=== PATIENT | female | born 1955 | race Caucasian/White ===

== ENCOUNTER → 2019-02-05 | Outpatient (REF) | payer BC ==
[~2019-02-05] MED LIST: AMLO5TAB6 PO; COMBAER6 INH; LEVA750T7 PO; METH2.5T48 PO; PRED10TA2 PO
[2019-02-05 19:18] LABS: C REACTIVE PROTEIN QUANTITATIV < 0.30 MG/DL (0.00-0.30); URIC ACID 5.8 MG/DL (2.6-6.0)
== END ==
LOC: M LAB REF 18:29
PROVIDERS: ATTEND Internal Medicine
DX: M25.571 Pain in right ankle and joints of right foot (principal)

== ENCOUNTER → 2019-09-16 | Outpatient (CLI) | payer BC ==
[~2019-09-16] MED LIST changes: +PROHANCE 279.3MG/ML 15ML VIAL (A9576) As Ordered ONE
--- NOTE | 2019-09-16 10:25 | REP ---
MRI RIGHT FOOT WITH AND WITHOUT CONTRAST: Multiple sequences obtained in the axial, coronal and sagittal plans prior to and following the intravenous administration of 12 mL ProHance. There is a nondisplaced fracture of the navicular bone with diffuse marrow edema throughout the navicula. Curvilinear transverse fracture is noted through the navicular bone. Nondisplaced fracture is seen at the base of the 1st metatarsal with diffuse marrow edema involving the metatarsal. There is focal marrow edema and suspected occult fractures also of the distal 2nd through 5th metatarsals. I also suspect an occult fracture of the 4th proximal phalanx with diffuse marrow edema noted. Mild subcortical bone marrow edema is seen in the cuboid distally which may represent mild stress related change and bone bruising. There is diffuse soft tissue edema predominately in the forefoot and also in the hind foot superficial to the plantar tendon. Plantar tendon is intact. The flexor and extensor tendons are intact with no tenosynovitis. Tendons and ligaments at the ankle appear intact. There is a lobulated and loculated ganglion cyst along the lateral aspect of the talocalcaneal joint approximately 1.8 cm in width and less than 1 cm in thickness. Another is seen at the anterolateral margin of the talus measuring about 7 x 11 x 5 mm. No enhancing soft tissue mass is seen. IMPRESSION: Nondisplaced fracture of the navicular bone. Nondisplaced fracture at the base of the 1st metatarsal. Occult fractures of the heads of the 2nd through 5th metatarsals as well as the 4th proximal phalanx. Two relatively small lobulated loculated ganglion cysts are seen in the lateral hind foot as discussed in detail above. Diffuse soft tissue edema. No enhancing soft tissue mass. Electronically Signed by Dylan Solis MD 09/16/2019 10:57 A
== END ==
LOC: M RAD 07:02
PROVIDERS: ATTEND Physician Assistant
DX: S92.254A Nondisplaced fracture of navicular [scaphoid] of right foot, initial encounter for closed fracture (principal); S92.314A Nondisplaced fracture of first metatarsal bone, right foot, initial encounter for closed fracture; S92.321A Displaced fracture of second metatarsal bone, right foot, initial encounter for closed fracture; S92.331A Displaced fracture of third metatarsal bone, right foot, initial encounter for closed fracture; S92.341A Displaced fracture of fourth metatarsal bone, right foot, initial encounter for closed fracture; S92.351A Displaced fracture of fifth metatarsal bone, right foot, initial encounter for closed fracture; S92.511A Displaced fracture of proximal phalanx of right lesser toe(s), initial encounter for closed fracture; M67.471 Ganglion, right ankle and foot; X58.XXXA Exposure to other specified factors, initial encounter; Y92.9 Unspecified place or not applicable; Y93.9 Activity, unspecified; Y99.9 Unspecified external cause status
CPT/HCPCS: 73720; A9576

== ENCOUNTER → 2019-11-14 | Outpatient (REF) | payer BC ==
[~2019-11-14] MED LIST changes: -PROHANCE 279.3MG/ML 15ML VIAL (A9576) As Ordered ONE
== END ==
LOC: M LAB REF 16:31
PROVIDERS: ATTEND Nurse Practitioner Adult Health
DX: M85.80 Other specified disorders of bone density and structure, unspecified site (principal)

== ENCOUNTER → 2020-11-17 | Outpatient (REF) | payer BC ==
[~2020-11-17] MED LIST changes: +AMLO1TAB24 PO; -AMLO5TAB6 PO
== END ==
LOC: M LAB REF 16:25
PROVIDERS: ATTEND Nurse Practitioner Adult Health
DX: D64.9 Anemia, unspecified (principal)

== ENCOUNTER → 2021-06-04 | Outpatient (CLI) | payer BC ==
--- NOTE | 2021-06-04 16:10 | REPMRS ---
Patient History The patient states she has not had a clinical breast exam in over a year. Family history of unknown cancer at age 58 in father. Benign radio exam breast specimen of the right breast, July 13, 2016. Benign stereotatic loc for ea lesion of the right breast, July 13, 2016. Took hormonal contraceptives for 10 years. Patient states no breast complaints today. Patient has signed MRS History Sheet. Digital Woman Screen Mammo: June 04, 2021 - Exam #: [id number] Bilateral CC and MLO view(s) were taken. Technologist: Mago Mcfarland, Technologist Prior study comparison: May 25, 2020, bilateral digital mammo screening bilat, performed at [facility]. May 23, 2019, bilateral digital mammo screening bilat, performed at [facility]. May 03, 2018, bilateral digital mammo screening bilat, performed at [facility]. April 29, 2014, bilateral bilat screen digital mammo, performed at [facility] ([facility]). April 17, 2013, bilateral bilat screen digital mammo, performed at [facility] ([facility]). FINDINGS: There are scattered fibroglandular densities. Screening. Digital screening (2D) mammography was performed bilaterally in the CC and MLO projections. Additionally, breast tomosynthesis (3D mammography) was performed bilaterally in the CC and MLO projections. Todays exam was compared to the prior exam/exams. By history, the patient has no complaints of a palpable breast abnormality or other significant breast complaints. The breasts are unchanged in size and shape. There are no hui-soft tissue densities or spiculated masses. There is no internal architectural distortion. Once again, stable benign appearing calcifications are seen.There are no suspicious hui-calcific clusters. Skin thickening or nipple retraction is not present. IMPRESSION: BI-RADS Category 2- Benign Findings. There is no evidence of malignant alteration of the breasts. Followup examination recommended in one year. The Volpara volumetric breast density category is B, there are scattered areas of fibroglandular densities. This mammogram was read with the assistance of [employer],an FDA approved computer aided detection system for mammography. The lifetime Tyrer-Cuzick score is 8 % Negative x-ray reports should not delay surgical consultation if a dominant or clinically suspicious mass is present. Not all breast cancers can be identified by mammography. Therefore, we recommend that you continue to perform regular breast self-examination and physical examination and then promptly contact your physician of any concerns or changes. Adenosis and dense breasts may obscure an underlying neoplasm. Assessment: BI-RADS/ACR category 2 mammogram. Benign Findings. Recommendation Routine screening mammogram of both breasts in 1 year. Electronically Signed By: Abdifatah Gu DO 06/04/21 [id number]
== END ==
LOC: M WHC 15:32
PROVIDERS: ATTEND Nurse Practitioner Adult Health
DX: Z12.31 Encounter for screening mammogram for malignant neoplasm of breast (principal); Z80.9 Family history of malignant neoplasm, unspecified; R92.1 Mammographic calcification found on diagnostic imaging of breast

== ENCOUNTER → 2021-06-29 | Outpatient (REF) | payer BC | LOC: M LAB REF 12:20 | PROVIDERS: ATTEND Nurse Practitioner Adult Health | DX: D75.89 Other specified diseases of blood and blood-forming organs (principal) ==

== ENCOUNTER → 2021-07-23 | Outpatient (CLI) | payer BC ==
--- NOTE | 2021-07-23 11:27 | REP ---
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 COMPARISON: No prior CTs for comparison. Prior ankle MRI 09/16/2019 and plain film examination 08/30/2019 reviewed. TECHNIQUE: 2 x 2 mm increments using helical technique and reconstructed in both sagittal and coronal planes FINDINGS: There is a comminuted talar fracture with both talar dome and posterior subtalar joint intra-articular components. The bones are demineralized. No additional fractures are identified. IMPRESSION: Age undetermined fracture of the talus as described above. The finding represents a change from the prior aforementioned exams. MRI is recommended to assess for marrow edema which may be helpful in determining the acuteness chronicity of the finding. <Electronically signed by Abdifatah Gu > 07/23/21 [id number]
--- NOTE | 2021-07-23 11:32 | REP ---
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 COMPARISON: None. TECHNIQUE: 1 x 2 mm increments using helical technique and reconstructed in both sagittal and coronal planes. FINDINGS: The bases of the 1st and 2nd metatarsals are fractured. The distal diaphyses of the 2nd through 4th metatarsals are fractured. A subtle nondisplaced fracture of the 5th metatarsal head cannot be ruled out. The bones are demineralized. There is a plantar calcaneal heel spur. IMPRESSION: Multiple fractures as described above. Consider follow-up with MRI. <Electronically signed by Abdifatah Gu > 07/23/21 1126
== END ==
LOC: M PLAIMG 10:25
PROVIDERS: ATTEND Physician Assistant
DX: M19.171 Post-traumatic osteoarthritis, right ankle and foot (principal); S92.335A Nondisplaced fracture of third metatarsal bone, left foot, initial encounter for closed fracture; X58.XXXA Exposure to other specified factors, initial encounter; Y92.9 Unspecified place or not applicable; Y93.9 Activity, unspecified; Y99.9 Unspecified external cause status; M77.32 Calcaneal spur, left foot

== ENCOUNTER → 2022-04-18 | Outpatient (CLI) | payer OTHER, MEDICAID ==
[2022-04-18 19:43] LABS: CALCIUM LEVEL 9.9 MG/DL (8.8-10.2)
[2022-04-19 10:25] LABS: TOTAL 25(OH) VITAMIN D 39.5 NG/ML (30.0-100.0)
== END ==
LOC: M WUC 12:00
PROVIDERS: ATTEND Internal Medicine Endocrinology, Diabetes & Metabolism
DX: M81.0 Age-related osteoporosis without current pathological fracture (principal); E55.9 Vitamin D deficiency, unspecified

== ENCOUNTER → 2022-06-17 | Outpatient (CLI) | payer OTHER | LOC: M WHC 09:53 | PROVIDERS: ATTEND Nurse Practitioner Adult Health | DX: Z12.31 Encounter for screening mammogram for malignant neoplasm of breast (principal); R92.8 Other abnormal and inconclusive findings on diagnostic imaging of breast ==

== ENCOUNTER → 2022-06-23 | Outpatient (CLI) | payer OTHER | LOC: M WHC 09:14 | PROVIDERS: ATTEND Nurse Practitioner Adult Health | DX: R92.2 Inconclusive mammogram (principal); R92.8 Other abnormal and inconclusive findings on diagnostic imaging of breast ==

== ENCOUNTER → 2022-06-30 | Outpatient (CLI) | payer OTHER ==
[2022-06-30 17:37] LABS: CALCIUM LEVEL 9.1 MG/DL (8.8-10.2); CREATININE FOR GFR 1.05 MG/DL (0.55-1.30); GLOMERULAR FILTRATION RATE 56.2 (>45); POTASSIUM SERUM 4.4 MEQ/L (3.5-5.1)
== END ==
LOC: M WUC 10:53
PROVIDERS: ATTEND Internal Medicine Endocrinology, Diabetes & Metabolism
DX: M81.0 Age-related osteoporosis without current pathological fracture (principal)

== ENCOUNTER → 2022-08-03 | Outpatient (CLI) | payer OTHER | LOC: M LABSMTC 09:54 | PROVIDERS: ATTEND Ophthalmology | DX: Z91.012 Allergy to eggs (principal); Z20.822 Contact with and (suspected) exposure to COVID-19 ==

== ENCOUNTER → 2022-09-29 | Outpatient (CLI) | payer OTHER ==
[2022-09-29 17:05] LABS: BLOOD UREA NITROGEN 23 MG/DL (9-23); CALCIUM LEVEL 9.7 MG/DL (8.3-10.6); CARBON DIOXIDE LEVEL 25 MMOL/L (20-31); CHLORIDE LEVEL 103 MMOL/L (98-107); CREATININE FOR GFR 0.85 MG/DL (0.55-1.30); GLOMERULAR FILTRATION RATE > 60.0 (>45); GLUCOSE, FASTING 95 MG/DL (74-106); POTASSIUM SERUM 4.5 MMOL/L (3.5-5.1); SODIUM LEVEL 138 MMOL/L (136-145)
== END ==
LOC: M WUC 11:55
PROVIDERS: ATTEND Internal Medicine Endocrinology, Diabetes & Metabolism
DX: M81.0 Age-related osteoporosis without current pathological fracture (principal)

== ENCOUNTER → 2022-12-22 | Outpatient (CLI) | payer MEDICARE, OTHER | LOC: M WHC 09:31 | PROVIDERS: ATTEND Nurse Practitioner Adult Health | DX: Z12.31 Encounter for screening mammogram for malignant neoplasm of breast (principal) | CPT/HCPCS: 77065; G0279 ==

== ENCOUNTER → 2023-06-05 | Outpatient (REF) | payer MEDICARE | LOC: M LAB REF 18:14 | PROVIDERS: ATTEND Surgery | DX: L72.3 Sebaceous cyst (principal) ==

== ENCOUNTER → 2023-08-01 | Outpatient (REF) | payer MEDICARE, OTHER ==
[2023-08-01 18:06] LABS: BLOOD UREA NITROGEN 15 MG/DL (9-23); CALCIUM LEVEL 9.5 MG/DL (8.3-10.6); CARBON DIOXIDE LEVEL 27 MMOL/L (20-31); CHLORIDE LEVEL 103 MMOL/L (98-107); CREATININE FOR GFR 0.91 MG/DL (0.55-1.30); GLOMERULAR FILTRATION RATE > 60.0 (>45); GLUCOSE, FASTING 97 MG/DL (74-106); SODIUM LEVEL 137 MMOL/L (136-145)
== END ==
LOC: M LABWUC 16:08
PROVIDERS: ATTEND Nurse Practitioner Family
DX: M81.0 Age-related osteoporosis without current pathological fracture (principal)

== ENCOUNTER → 2024-03-04 | Outpatient (CLI) | payer MEDICARE, OTHER | LOC: M WUC 14:33 | PROVIDERS: ATTEND Nurse Practitioner Adult Health | DX: J44.1 Chronic obstructive pulmonary disease with (acute) exacerbation (principal); I70.0 Atherosclerosis of aorta ==

== ENCOUNTER → 2024-05-02 | Outpatient (CLI) | payer MEDICARE, OTHER | LOC: M WHC 09:38 | PROVIDERS: ATTEND Internal Medicine Endocrinology, Diabetes & Metabolism | DX: M81.0 Age-related osteoporosis without current pathological fracture (principal); M85.89 Other specified disorders of bone density and structure, multiple sites ==

== ENCOUNTER → 2024-05-08 | Outpatient (CLI) | payer MEDICARE, OTHER | LOC: M PLAIMG 12:27 | PROVIDERS: ATTEND Internal Medicine Pulmonary Disease | DX: R91.8 Other nonspecific abnormal finding of lung field (principal) ==

== ENCOUNTER → 2024-06-21 | Outpatient (CLI) | payer MEDICARE ==
[2024-06-21 18:26] LABS: BLOOD UREA NITROGEN 20 MG/DL (9-23); CALCIUM LEVEL 9.5 MG/DL (8.3-10.6); CARBON DIOXIDE LEVEL 25 MMOL/L (20-31); CHLORIDE LEVEL 104 MMOL/L (98-107); CREATININE FOR GFR 0.89 MG/DL (0.55-1.30); GLOMERULAR FILTRATION RATE > 60.0 (>45); GLUCOSE, FASTING 87 MG/DL (74-106); POTASSIUM SERUM 4.4 MMOL/L (3.5-5.1); SODIUM LEVEL 135 MMOL/L (136-145)
[2024-06-21 18:28] LABS: TOTAL 25(OH) VITAMIN D 59.9 NG/ML (20.0-100.0)
== END ==
LOC: M WUC 10:53
PROVIDERS: ATTEND Internal Medicine Endocrinology, Diabetes & Metabolism
DX: E55.9 Vitamin D deficiency, unspecified (principal)

== ENCOUNTER → 2024-06-21 | Outpatient (CLI) | payer MEDICARE, OTHER | LOC: M WHC 09:48 | PROVIDERS: ATTEND Nurse Practitioner Adult Health | DX: Z12.31 Encounter for screening mammogram for malignant neoplasm of breast (principal); E55.9 Vitamin D deficiency, unspecified ==

== ENCOUNTER 2024-09-19 12:26 | Observation (INO) | payer MEDICARE ==
[~2024-09-19] VITALS: Ht 172.7 cm; Wt 67.0 kg
[2024-09-19 13:27] LABS: BASO % 0.1 % (0.0-1.0); HEMATOCRIT 39.8 % (36.0-47.0); HEMOGLOBIN 13.6 g/dl (12.0-15.5); LYMPH # 0.2 10^3/uL (1.5-5.0); LYMPH % 1.8 % (24.0-44.0); MEAN CORPUSCULAR HEMOGLOBIN 34.9 pg (27.0-33.0); MEAN CORPUSCULAR HGB CONC 34.2 g/dl (32.0-36.5); MEAN CORPUSCULAR VOLUME 102.1 fl (80.0-96.0); MONO # 0.1 10^3/uL (0.0-0.8); MONO % 1.6 % (2.0-8.0); NEUTROPHILS # 7.9 10^3/uL (1.5-8.5); PLATELET COUNT, AUTOMATED 230 10^3/uL (150-450); WHITE BLOOD COUNT 8.2 10^3/uL (4.0-10.0)
[2024-09-19] MEDS: ACETAMINOPHEN 325 MG TAB PO ONE (13:51)
[2024-09-19 13:55] LABS: ALBUMIN 4.3 G/DL (3.2-5.2); ALKALINE PHOSPHATASE 96 U/L (35-104); ALT/SGPT 84 U/L (7.0-40); AST/SGOT 88 U/L (<34); BILIRUBIN,DIRECT 0.1 MG/DL (<0.4); BILIRUBIN,TOTAL 0.4 MG/DL (0.3-1.2); BLOOD UREA NITROGEN 14 MG/DL (9-23); CALCIUM LEVEL 9.3 MG/DL (8.3-10.6); CARBON DIOXIDE LEVEL 24 MMOL/L (20-31); CHLORIDE LEVEL 98 MMOL/L (98-107); CREATININE FOR GFR 0.74 MG/DL (0.55-1.30); GLOMERULAR FILTRATION RATE > 60.0 (>45); GLUCOSE, FASTING 156 MG/DL (74-106); POTASSIUM SERUM 4.3 MMOL/L (3.5-5.1); SODIUM LEVEL 131 MMOL/L (136-145)
[2024-09-19 14:15] LABS: PROCALCITONIN 0.12 ng/ml
[2024-09-19 14:39] LABS: ABG BASE EXCESS -2.9 (-2.0-2.0); ABG HCO3 20.9 MMOL/L (22.0-26.0); ABG O2 SATURATION 95.1 % (95.0-99.0); ABG PARTIAL PRESSURE CO2 33.5 mmHg (35.0-45.0); ABG PARTIAL PRESSURE O2 69.7 mmHg (75.0-100.0); ABG TOTAL CO2 21.9 MMOL/L (23.0-31.0); ABG pH (ARTERIAL) 7.412 UNITS (7.350-7.450)
[2024-09-19 15:23] LABS: KETONE, URINE AUTO RFX 1+ mg/dL (NEGATIVE); LEUKOCYTE ESTERASE UR AUTO RFX NEGATIVE (NEGATIVE)
[2024-09-19] MEDS: methylPREDNISolone 125MG 2ML VIAL IV ONE (17:18)
[2024-09-19] MEDS: OSELTAMIVIR PHOSPHATE 75 MG CAP (TAMIFLU) PO ONE (17:18)
[2024-09-19] MEDS: ALBUTEROL 90 MCG/ACT 8GM HFA INHALER INH ONE (17:57)
[2024-09-19] MEDS: ONDANSETRON 4MG 2ML VIAL IV ONE (18:31)
[2024-09-19] MEDS ORDERED: BUDE10.7 INH (19:38)
[2024-09-19] MEDS ORDERED: IBUP80TA PO (19:38)
[2024-09-19] MEDS ORDERED: FOLI1TAB11 PO (19:38)
[2024-09-19] MEDS ORDERED: ALBU8.5H INH (19:38)
[2024-09-19] MEDS ORDERED: HOME MED LIST COMPLETE! XX SCH (19:40)
[2024-09-19] MEDS: SYMBICORT 160/4.5MCG INHALER 6GM INH SCH (20:00)
[2024-09-19] MEDS: IBUPROFEN 600MG TAB PO ONE (20:22)
[2024-09-19 23:22] VITALS: BP 151/85; TEMP 97.2; O2SAT 97
[2024-09-20] MEDS: ACETAMINOPHEN 325 MG TAB PO PRN (00:08)
[2024-09-20] MEDS ORDERED: NICOTINE 14 MG/24 HR TRANSDERMAL TD PRN (00:30)
[2024-09-20] MEDS ORDERED: NICOTINE POLACRILEX 2 MG GUM PO PRN (00:30)
[2024-09-20] MEDS ORDERED: LIDOCAINE 5% (LIDODERM) PATCH TD PRN (00:35)
[2024-09-20] MEDS: UNRESOLVED CLARIFICATION ENTRY XX STA (01:09)
[2024-09-20] MEDS: AZITHROMYCIN 250MG TABLET PO SCH (01:19)
[2024-09-20] MEDS: methylPREDNISolone 40MG 1ML VIAL IV SCH (01:19)
[2024-09-20] MEDS: IPRATROPIUM 0.5MG/ALBUTEROL 2.5MG INH SOL UD 3ML (DUONEB) NEB SCH (02:00)
[2024-09-20 02:05] VITALS: O2SAT 86
[2024-09-20 02:08] VITALS: O2SAT 94
[2024-09-20 04:00] VITALS: BP 104/70; TEMP 97.5; O2SAT 89
[2024-09-20 06:26] LABS: HEMATOCRIT 37.3 % (36.0-47.0); HEMOGLOBIN 12.5 g/dl (12.0-15.5); MEAN CORPUSCULAR HEMOGLOBIN 34.2 pg (27.0-33.0); MEAN CORPUSCULAR HGB CONC 33.5 g/dl (32.0-36.5); MEAN CORPUSCULAR VOLUME 101.9 fl (80.0-96.0); PLATELET COUNT, AUTOMATED 208 10^3/uL (150-450); RED BLOOD COUNT 3.66 10^6/uL (4.00-5.40); WHITE BLOOD COUNT 8.3 10^3/uL (4.0-10.0)
[2024-09-20 06:51] LABS: BLOOD UREA NITROGEN 23 MG/DL (9-23); CALCIUM LEVEL 8.5 MG/DL (8.3-10.6); CARBON DIOXIDE LEVEL 23 MMOL/L (20-31); CHLORIDE LEVEL 98 MMOL/L (98-107); CREATININE FOR GFR 0.74 MG/DL (0.55-1.30); GLOMERULAR FILTRATION RATE > 60.0 (>45); GLUCOSE, FASTING 129 MG/DL (74-106); POTASSIUM SERUM 4.3 MMOL/L (3.5-5.1); SODIUM LEVEL 130 MMOL/L (136-145)
[2024-09-20] MEDS: OSELTAMIVIR PHOSPHATE 75 MG CAP (TAMIFLU) PO SCH (08:34)
[2024-09-20] MEDS: HEPARIN SOD (PORCINE) 5000UNITS/ML 1ML VIAL/SYRINGE SC SCH (08:40)
[2024-09-20] MEDS ORDERED: ISOVUE-370 76% 100ML VIAL As Ordered ONE (11:42)
[2024-09-20 12:45] VITALS: BP 110/94; TEMP 97.7; O2SAT 96
[2024-09-20 20:09] VITALS: BP 135/76; TEMP 98.1; O2SAT 94
[2024-09-21] VITALS: BP 123/74; TEMP 97.3; O2SAT 95
[2024-09-21 06:40] LABS: HEMATOCRIT 35.7 % (36.0-47.0); HEMOGLOBIN 12.2 g/dl (12.0-15.5); MEAN CORPUSCULAR HEMOGLOBIN 34.4 pg (27.0-33.0); MEAN CORPUSCULAR HGB CONC 34.2 g/dl (32.0-36.5); MEAN CORPUSCULAR VOLUME 100.6 fl (80.0-96.0); PLATELET COUNT, AUTOMATED 205 10^3/uL (150-450); RED BLOOD COUNT 3.55 10^6/uL (4.00-5.40)
[2024-09-21 07:14] LABS: BLOOD UREA NITROGEN 35 MG/DL (9-23); CALCIUM LEVEL 8.2 MG/DL (8.3-10.6); CARBON DIOXIDE LEVEL 24 MMOL/L (20-31); CHLORIDE LEVEL 99 MMOL/L (98-107); CREATININE FOR GFR 0.94 MG/DL (0.55-1.30); GLOMERULAR FILTRATION RATE > 60.0 (>45); GLUCOSE, FASTING 134 MG/DL (74-106); POTASSIUM SERUM 4.5 MMOL/L (3.5-5.1); SODIUM LEVEL 132 MMOL/L (136-145)
[2024-09-21 11:03] LABS: PROCALCITONIN 0.17 ng/ml
[2024-09-21] MEDS: IPRATROPIUM 0.5MG/ALBUTEROL 2.5MG INH SOL UD 3ML (DUONEB) NEB SCH (12:00)
[2024-09-21 12:33] VITALS: BP 122/79; TEMP 97.5; O2SAT 94
[2024-09-21] MEDS: guaiFENesin ER TABLET 600 MG TAB PO SCH (12:37)
[2024-09-21 20:00] VITALS: BP 144/86; TEMP 98.1; O2SAT 93
[2024-09-22] VITALS: BP 111/63; TEMP 97.3; O2SAT 91
[2024-09-22 04:00] VITALS: BP 119/73; TEMP 97.5; O2SAT 92
[2024-09-22 06:53] LABS: HEMATOCRIT 37.1 % (36.0-47.0); HEMOGLOBIN 12.5 g/dl (12.0-15.5); MEAN CORPUSCULAR HEMOGLOBIN 33.9 pg (27.0-33.0); MEAN CORPUSCULAR HGB CONC 33.7 g/dl (32.0-36.5); MEAN CORPUSCULAR VOLUME 100.5 fl (80.0-96.0); PLATELET COUNT, AUTOMATED 209 10^3/uL (150-450); RED BLOOD COUNT 3.69 10^6/uL (4.00-5.40)
[2024-09-22 07:22] LABS: BLOOD UREA NITROGEN 42 MG/DL (9-23); CALCIUM LEVEL 8.6 MG/DL (8.3-10.6); CARBON DIOXIDE LEVEL 24 MMOL/L (20-31); CHLORIDE LEVEL 98 MMOL/L (98-107); CREATININE FOR GFR 0.85 MG/DL (0.55-1.30); GLOMERULAR FILTRATION RATE > 60.0 (>45); GLUCOSE, FASTING 156 MG/DL (74-106); SODIUM LEVEL 133 MMOL/L (136-145)
[2024-09-22 08:28] VITALS: BP 123/66; TEMP 97.7; O2SAT 91
[2024-09-22 12:57] VITALS: BP 135/75; TEMP 97.9; O2SAT 92
[2024-09-22] MEDS: ONDANSETRON 4MG 2ML VIAL IV PRN (14:54)
[2024-09-22 16:45] VITALS: BP 135/85; TEMP 97.9; O2SAT 93
[2024-09-22] MEDS: PANTOPRAZOLE 40MG TAB (PROTONIX) PO PRN (17:06)
[2024-09-22 20:00] VITALS: BP 147/92; TEMP 97.5; O2SAT 92
[2024-09-23] VITALS (8 sets, daily range): BP systolic 124–145; BP diastolic 72–96; TEMP 96.4–97.8; O2SAT 86–100
[2024-09-23 06:21] LABS: HEMOGLOBIN 12.1 g/dl (12.0-15.5); MEAN CORPUSCULAR HEMOGLOBIN 35.3 pg (27.0-33.0); MEAN CORPUSCULAR HGB CONC 34.6 g/dl (32.0-36.5); PLATELET COUNT, AUTOMATED 209 10^3/uL (150-450); RED BLOOD COUNT 3.43 10^6/uL (4.00-5.40); WHITE BLOOD COUNT 11.1 10^3/uL (4.0-10.0)
[2024-09-23 07:00] LABS: BLOOD UREA NITROGEN 38 MG/DL (9-23); CALCIUM LEVEL 8.6 MG/DL (8.3-10.6); CARBON DIOXIDE LEVEL 22 MMOL/L (20-31); CHLORIDE LEVEL 102 MMOL/L (98-107); CREATININE FOR GFR 0.84 MG/DL (0.55-1.30); GLOMERULAR FILTRATION RATE > 60.0 (>45); GLUCOSE, FASTING 137 MG/DL (74-106); POTASSIUM SERUM 4.4 MMOL/L (3.5-5.1); SODIUM LEVEL 135 MMOL/L (136-145)
[2024-09-23 09:11] LABS: LIPASE 66 U/L (12-53)
[2024-09-24 00:10] VITALS: O2SAT 92
[2024-09-24 01:00] VITALS: O2SAT 90
[2024-09-24 03:03] VITALS: O2SAT 85; O2SAT 90
[2024-09-24 04:33] VITALS: O2SAT 91
[2024-09-24 05:26] VITALS: BP 139/80; TEMP 97.2; O2SAT 92
[2024-09-24 06:40] LABS: HEMATOCRIT 35.8 % (36.0-47.0); HEMOGLOBIN 11.9 g/dl (12.0-15.5); MEAN CORPUSCULAR HGB CONC 33.2 g/dl (32.0-36.5); MEAN CORPUSCULAR VOLUME 102.3 fl (80.0-96.0); PLATELET COUNT, AUTOMATED 228 10^3/uL (150-450); WHITE BLOOD COUNT 12.9 10^3/uL (4.0-10.0)
[2024-09-24 07:11] LABS: BLOOD UREA NITROGEN 37 MG/DL (9-23); CALCIUM LEVEL 8.8 MG/DL (8.3-10.6); CARBON DIOXIDE LEVEL 25 MMOL/L (20-31); CHLORIDE LEVEL 104 MMOL/L (98-107); CREATININE FOR GFR 0.93 MG/DL (0.55-1.30); GLOMERULAR FILTRATION RATE > 60.0 (>45); GLUCOSE, FASTING 137 MG/DL (74-106); SODIUM LEVEL 136 MMOL/L (136-145)
[2024-09-24] MEDS ORDERED: TIOTROPIUM INHALER/CAPSULE (SPIRIVA) INH SCH (08:00)
[2024-09-24] MEDS: predniSONE 20 MG TAB PO SCH (08:23)
[2024-09-24] MEDS: PANTOPRAZOLE 40MG TAB (PROTONIX) PO SCH (08:23)
[2024-09-24 12:00] VITALS: BP 124/76; TEMP 97.6; O2SAT 95
[2024-09-24] MEDS ORDERED: FAMO40TA3 PO (12:32)
[2024-09-24] MEDS ORDERED: PRED10TA2 PO (12:32)
== END 2024-09-24 14:24 | disposition home or self-care (01) ==
LOC: M ED 12:26 → M ED INP 12:27 → M MS5PR 23:08
PROVIDERS: ADMIT Student in an Organized Health Care Education/Training Program; ATTEND Internal Medicine Nephrology
DX: J44.1 Chronic obstructive pulmonary disease with (acute) exacerbation (principal); J09.X2 Influenza due to identified novel influenza A virus with other respiratory manifestations; J96.01 Acute respiratory failure with hypoxia; D72.829 Elevated white blood cell count, unspecified; K80.67 Calculus of gallbladder and bile duct with acute and chronic cholecystitis with obstruction; K76.0 Fatty (change of) liver, not elsewhere classified; F17.218 Nicotine dependence, cigarettes, with other nicotine-induced disorders; L40.9 Psoriasis, unspecified
CPT/HCPCS: 36415; 36600; 70450; 71045; 71046; 71275; 76705; 80048; 80076; 81001; 82140; 82803; 83605; 83690; 84145; 85025; 85027; 85379; 87040; 87486; 87581; 87633; 87798; 93005; 93041; 94640; 94760; 96372; 96374; 96375; 96376; 97161; 97164; 97530; 99285; G0378; J2405; J2919; J7512; Q9967

== ENCOUNTER → 2025-06-23 | Outpatient (CLI) | payer MEDICARE ==
[~2025-06-23] MED LIST changes: +ALBU8.5H INH; +BUDE10.7 INH; +FAMO40TA3 PO; +FOLI1TAB11 PO; +IBUP80TA PO
== END ==
LOC: M WHC 09:21
PROVIDERS: ATTEND Nurse Practitioner Adult Health
DX: Z12.31 Encounter for screening mammogram for malignant neoplasm of breast (principal); M81.0 Age-related osteoporosis without current pathological fracture

== ENCOUNTER → 2025-08-27 | Outpatient (CLI) | payer MEDICARE | LOC: M WUC 14:04 | PROVIDERS: ATTEND Nurse Practitioner Adult Health | DX: M25.552 Pain in left hip (principal); M25.562 Pain in left knee ==